=== PATIENT | male | born 2000 | race Caucasian/White ===

== ENCOUNTER 2021-02-11 04:53 | Emergency (ER) | payer OTHER ==
[2021-02-11] MEDS ORDERED: IBUPROFEN 600 MG TABLET (FP) PO ONE ×2 (05:56→07:28)
[2021-02-11 07:17] VITALS: BMI 45.2
[2021-02-11 09:52] VITALS: BP 119/78; PULSE 97; TEMP 98.5
== END 2021-02-11 10:30 | disposition home or self-care (01) ==
LOC: JER 04:53
DX: U07.1 COVID-19 (principal)
CPT/HCPCS: 71046-TC-FY; 87804; 87807; 99284-25; C9803; U0003; U0005